=== PATIENT | male | born 1985 | race Asian ===

== ENCOUNTER 2025-02-21 22:01 | Emergency (ER) | payer OTHER ==
[~2025-02-21] VITALS: Ht 172.7 cm; Wt 81.8 kg
[2025-02-21 22:04] VITALS: TEMP 98.1
[2025-02-21 23:01] LABS: BASOPHILS % (AUTO) 0.4 % (0.0-2.0); EOSINOPHILS % (AUTO) 3.9 % (1.0-6.0); HEMATOCRIT 44.4 % (41-53); HEMOGLOBIN 15.3 g/dL (13.5-17.5); LYMPHOCYTES # (AUTO) 3.2 K/uL (1.0-4.8); MEAN CORPUSCULAR HEMOGLOBIN 31.2 pg (26.0-34.0); MEAN CORPUSCULAR HGB CONC 34.4 G/dL (31.0-37.0); MEAN CORPUSCULAR VOLUME 91 fL (80-100); MONOCYTES # (AUTO) 0.7 K/uL (0.1-1.0); MONOCYTES % (AUTO) 7.7 % (2.0-9.0); NEUTROPHILS # (AUTO) 4.4 K/uL (1.8-7.7); PLATELET COUNT (AUTO) 284 K/uL (150-450); RED CELL DISTRIBUTION WIDTH 13.8 % (11.5-14.5); WHITE BLOOD COUNT (AUTO) 8.6 K/uL (4.5-11.0)
[2025-02-21 23:09] LABS: ANION GAP 5 mmol/L (8-16); CALCIUM, TOTAL 8.3 mg/dL (8.8-10.5); CARBON DIOXIDE 32 mmol/L (22-29); CHLORIDE 107 mmol/L (98-107); CREATININE 0.88 mg/dL (0.60-1.30); GLOMERULAR FILTR. RATE CALC > 60 mL/min (>60); GLUCOSE,RANDOM 94 mg/dL (70-110); POTASSIUM 3.7 mmol/L (3.5-5.1); SODIUM SERUM 144 mmol/L (136-145); UREA NITROGEN, BLOOD 7 mg/dL (7-18)
[2025-02-21] MEDS ORDERED: IOHEXOL 350 MG/ML 100 ML VIAL ONE (23:20)
[2025-02-21] MEDS: KETOROLAC TROMETHAMINE 30 MG/ML VIAL IVP ONE (23:22)
[2025-02-21] MEDS: SODIUM CHLORIDE 0.9% 1,000 ML IV ONE (23:23)
[2025-02-21] MEDS: MORPHINE SULFATE 2 MG/ML SYRINGE IVP ONE (23:23)
[2025-02-22 00:24] LABS: APPEARANCE,URINE CLEAR (CLEAR); BILIRUBIN,URINE NEGATIVE (NEGATIVE); COLOR,URINE LIGHT YELLOW (YELLOW); GLUCOSE, URINE (UA) NEGATIVE (NEGATIVE); KETONES,URINE NEGATIVE (NEGATIVE); LEUKOCYTE ESTERASE ,URINE NEGATIVE (NEGATIVE); NITRATE,URINE NEGATIVE (NEGATIVE); OCCULT BLOOD,URINE NEGATIVE (NEGATIVE); PROTEIN,URINE NEGATIVE (NEGATIVE); SPECIFIC GRAVITIY, URINE 1.017 (1.003-1.030); UROBILINOGEN,URINE <=1.0 mg/dL (<=1.0)
[2025-02-22 00:32] LABS: BACTERIA,URINE None Seen /HPF (None Seen); RBC,URINE None Seen /HPF (0-2); SQUAMOUS EPITHELIAL CELL,UR Rare /LPF (None Seen); WBC,URINE None Seen /HPF (0-5)
[2025-02-22] MEDS ORDERED: ACET-3385 PO (01:34)
[2025-02-22 10:00] VITALS: BP 135/88; PULSE 61; RESP 18; O2SAT 97
== END 2025-02-22 10:50 | disposition home or self-care (01) ==
LOC: EMS 22:01
DX: K40.90 Unilateral inguinal hernia, without obstruction or gangrene, not specified as recurrent (principal)
CPT/HCPCS: 99285; 74177; 96374; 96361; 96375; 80048; 81001; 85025; 36415; 76870; J1885; Q9967; J2270; J7030

== ENCOUNTER 2025-03-29 13:04 | Emergency (ER) | payer OTHER ==
[~2025-03-29] VITALS: Ht 172.7 cm; Wt 81.8 kg
[~2025-03-29 13:04] MED LIST: ACET-3385 PO
[2025-03-29 13:11] VITALS: TEMP 97.9
[2025-03-29 13:49] LABS: PLATELET COUNT (AUTO) 360 K/uL (150-450); RED BLOOD CELL COUNT(AUTO) 5.66 MIL/uL (4.50-5.90); RED CELL DISTRIBUTION WIDTH 13.3 % (11.5-14.5); WHITE BLOOD COUNT (AUTO) 12.5 K/uL (4.5-11.0)
[2025-03-29 13:51] LABS: CALCIUM, TOTAL 9.6 mg/dL (8.8-10.5); CREATININE 1.21 mg/dL (0.60-1.30); GLOMERULAR FILTR. RATE CALC > 60 mL/min (>60); GLUCOSE,RANDOM 128 mg/dL (70-110); SODIUM SERUM 141 mmol/L (136-145); UREA NITROGEN, BLOOD 9 mg/dL (7-18)
[2025-03-29] MEDS ORDERED: IOHEXOL 350 MG/ML 100 ML VIAL ONE (14:30)
[2025-03-29] MEDS ORDERED: SODIUM CHLORIDE 0.9% 100 ML ONE (14:30)
[2025-03-29] MEDS: FentaNYL CITRATE PF 100 MCG/2 ML VIAL IVP ONE (14:31)
[2025-03-29] MEDS: ONDANSETRON HCL 4 MG/2 ML VIAL IVP ONE ×2 (14:31→16:49)
[2025-03-29] MEDS: SODIUM CHLORIDE 0.9% 1,000 ML IV ONE (14:32)
[2025-03-29 14:39] LABS: ASPARTATE AMINOTRANSFERASE 21.0 U/L (15-37); TOTAL PROTEIN, SERUM 7.9 g/dL (6.4-8.2)
[2025-03-29 17:10] LABS: APPEARANCE,URINE CLEAR (CLEAR); GLUCOSE, URINE (UA) NEGATIVE (NEGATIVE); LEUKOCYTE ESTERASE ,URINE NEGATIVE (NEGATIVE); NITRATE,URINE NEGATIVE (NEGATIVE); OCCULT BLOOD,URINE NEGATIVE (NEGATIVE)
[2025-03-29 17:17] LABS: ALCOHOL, URINE DRUG SCREEN NEGATIVE (NEGATIVE); AMPHET/METH SCREEN,URINE NEGATIVE (NEGATIVE); BARBITURATE SCREEN, URINE NEGATIVE (NEGATIVE); CANNABINOID SCREEN,URINE POSITIVE (NEGATIVE); COCAINE SCREEN,URINE NEGATIVE (NEGATIVE); METHADONE SCREEN, URINE NEGATIVE (NEGATIVE); SPECIFIC GRAVITIY, URINE 1.030 (1.003-1.030)
[2025-03-29 17:23] LABS: PH,URINE DRUG SCREEN 5.0 (5.0-8.0)
[2025-03-29] MEDS: LORazepam 2 MG/ML VIAL IVP ONE (17:34)
[2025-03-29 17:41] VITALS: BP 121/81; PULSE 91; RESP 16; O2SAT 99
[2025-03-29] MEDS ORDERED: ONDA-104 PO (17:50)
== END 2025-03-29 18:15 | disposition home or self-care (01) ==
LOC: EMS 13:05
DX: R11.2 Nausea with vomiting, unspecified (principal); F12.90 Cannabis use, unspecified, uncomplicated; Z98.890 Other specified postprocedural states; Z79.899 Other long term (current) drug therapy
CPT/HCPCS: 99285; 74177; 96374; 96375; 96361; 80048; 80076; 83690; 85025; 36415; 96376; 80307; 81003; 96372; G0480; Q9967; J1200; J3010; J1630; J2060; J2405; J7030; J7050